=== PATIENT | female | born 1985 | race Caucasian/White ===

== ENCOUNTER 2018-02-15 20:45 | Emergency (ER) | payer OTHER ==
[2018-02-16] MEDS: HYDROCODONE/APAP (5/325) TAB PO (01:07)
[2018-02-16] MEDS: IBUPROFEN 800 MG TAB PO (01:08)
== END 2018-02-16 03:17 | disposition home or self-care (01) ==
LOC: FTE 02-16 03:17
DX: S92.901A Unspecified fracture of right foot, initial encounter for closed fracture (principal); F17.210 Nicotine dependence, cigarettes, uncomplicated; W10.8XXA Fall (on) (from) other stairs and steps, initial encounter; Y92.9 Unspecified place or not applicable
CPT/HCPCS: 29515; 73610-RT; 73630; 81025; 99283-25